=== PATIENT | female | born 1960 | race Caucasian/White ===

== ENCOUNTER 2018-11-29 12:18 | Emergency (ER) | payer BC ==
--- NOTE | 2018-11-29 12:50 | EDM.PDOC ---
ED HPI GENERAL MEDICAL PROBLEM - General Chief Complaint: Lower Extremity Injury/Pain Stated Complaint: LUMP AND BRUISE ON L LEG Time Seen by Provider: 11/29/18 12:45 Source of Information: Reports: Patient History Limitations: Reports: No Limitations - History of Present Illness INITIAL COMMENTS - FREE TEXT/NARRATIVE: Presents with spontaneous bruising and pain to left lower leg. Patient on Coumadin for mechanical prosthetic heart valve. Also complains of sore throat and cough x 2 days. Was prescribed Doxycycline several weeks ago for a URI, CXR at that time did not show pneumonia, per patient. Denies chest pain or shortness of breath. Onset Date: 11/29/18 Onset Time: 01:00 Location: Reports: Lower Extremity, Left Quality: Reports: Dull Severity: Mild - Related Data Allergies Allergy/AdvReac Type Severity Reaction Status Date / Time amoxicillin Allergy Other Verified 11/29/18 12:52 cephalexin Allergy Other Verified 11/29/18 12:52 methylprednisolone Allergy Other Verified 11/29/18 12:52 Home Meds: Home Meds Budesonide/Formoterol [Symbicort 160-4.5 MCG] 2 puff INH BID 11/29/18 [History] Carvedilol 3.125 mg PO BID 11/29/18 [History] DULoxetine HCl [Duloxetine HCl] 30 mg PO DAILY 11/29/18 [History] DULoxetine HCl [Duloxetine HCl] 60 mg PO DAILY 11/29/18 [History] Doxycycline [Vibramycin] 100 mg PO BID #28 cap 11/29/18 [Rx] Levothyroxine 150 mcg PO DAILY 11/29/18 [History] Rosuvastatin Calcium 10 mg PO BEDTIME 11/29/18 [History] Warfarin Sodium [Jantoven] 5 mg PO ASDIRECTED 11/29/18 [History] oxyCODONE HCl [oxyCODONE] 15 mg PO TID PRN 11/29/18 [History] rOPINIRole [Requip] 0.25 mg PO BEDTIME PRN 11/29/18 [History] Past Medical History Cardiovascular History: Reports: Heart Failure, High Cholesterol, Hypertension. Denies: Blood Clots/VTE/DVT Respiratory History: Reports: COPD Social & Family History - Tobacco Use Tobacco Use Within Last Twelve Months: No ED ROS GENERAL - Review of Systems Review Of Systems: ROS reveals no pertinent complaints other than HPI. ED EXAM, GENERAL - Physical Exam Exam: See Below Exam Limited By: No Limitations General Appearance: Alert, WD/WN, No Apparent Distress Ears: Normal External Exam Nose: Normal Inspection Throat/Mouth: Normal Inspection, No Airway Compromise Head: Atraumatic, Normocephalic Neck: Full Range of Motion Respiratory/Chest: No Respiratory Distress, Lungs Clear, Normal Breath Sounds Cardiovascular: Regular Rate, Rhythm, Other (mechanical valve sounds present) Peripheral Pulses: 2+: Dorsalis Pedis (L) Back Exam: Full Range of Motion Extremities: Other (4x3 cm eccymosis with mild tenderness to left anterior lower leg, no edema or swelling) Neurological: Alert, Normal Cognition Psychiatric: Normal Affect, Normal Mood Skin Exam: Warm, Dry, Intact Course - Vital Signs Last Recorded V/S: Last Vital Signs Temp 36.3 C 11/29/18 12:35 Pulse 99 11/29/18 12:35 Resp 16 11/29/18 12:35 BP 137/90 11/29/18 12:35 Pulse Ox 99 11/29/18 12:35 - Orders/Labs/Meds Orders: Active Orders 24 hr Category Date Time Status VL Duplex Lwr Ext Veins Ltd Lt [US] Stat Exams 11/29/18 12:42 Ordered Doxycycline [Vibra-Tabs] Med 11/29/18 13:29 Once 100 mg PO ONETIME ONE Labs: Laboratory Tests 11/29/18 Range/Units 12:54 PT 22.7 H (8.7-11.1) INR 2.36 H (0.89-1.13) - Radiology Interpretation Free Text/Narrative:: Venous US Doppler LLE: No DVT seen, there is a marble size fluid collection at the site of bruising. (per US tech) Departure - Departure Time of Disposition: 13:30 Disposition: Home, Self-Care 01 Condition: Good Clinical Impression: Bronchitis Hematoma of left lower extremity Qualifiers: Encounter type: initial encounter Qualified Code(s): S80.12XA - Contusion of left lower leg, initial encounter - Discharge Information *PRESCRIPTION DRUG MONITORING PROGRAM REVIEWED*: No *COPY OF PRESCRIPTION DRUG MONITORING REPORT IN PATIENT PRASHANT: Not Applicable Prescriptions: Doxycycline [Vibramycin] 100 mg PO BID #28 cap Instructions: Hematoma, [id number], Acute Bronchitis, Adult Referrals: Juliet Ferguson NP [Primary Care Provider] - Forms: ED Department Discharge Additional Instructions: Fill prescription for Doxycycline and take as directed. Check INR on 12/01/18. Elevate and rest the leg. Return to the ER as needed. - My Orders Last 24 Hours: My Active Orders 11/29/18 12:42 VL Duplex Lwr Ext Veins Ltd Lt [US] Stat 11/29/18 13:29 Doxycycline [Vibra-Tabs] 100 mg PO ONETIME ONE - Assessment/Plan Last 24 Hours: My Active Orders 11/29/18 12:42 VL Duplex Lwr Ext Veins Ltd Lt [US] Stat 11/29/18 13:29 Doxycycline [Vibra-Tabs] 100 mg PO ONETIME ONE
[2018-11-29] MEDS ORDERED: Doxycycline 100 MG Tab PO ONE (13:29)
--- NOTE | 2018-11-30 11:09 | US ---
INDICATION: Bruising, pain, question abscess versus mass - lump left mid calf ULTRASOUND, NONVASCULAR, LEFT LOWER EXTREMITY: Multiple ultrasonic images were obtained 11/29/18 - no comparisons. A hypoechoic area with echoes within it and a surrounding echogenic rim is noted in the mid calf medially on the left. No interior blood flow is seen. There is blood flow surrounding the area. This finding could represent an abscess formation or possibly a hematoma. Neoplastic process is felt to be unlikely with this appearance. This finding measured, at the site of the patients palpable lump, 1.69 x 1.05 x 0.75 cm. IMPRESSION: Complex mass in the area of a lump in the left mid medial calf, which shows no interior blood flow. It could represent a hematoma with surrounding reaction or possibly an abscess. This finding should be correlated clinically. MTDD
== END 2018-11-29 13:45 | disposition home or self-care (01) ==
LOC: FB.ED 12:18
DX: S80.12XA Contusion of left lower leg, initial encounter (principal); J40 Bronchitis, not specified as acute or chronic; I10 Essential (primary) hypertension; Z88.1 Allergy status to other antibiotic agents; Z88.8 Allergy status to other drugs, medicaments and biological substances; X58.XXXA Exposure to other specified factors, initial encounter
CPT/HCPCS: 36415; 76881; 85610; 99282; A9270; 93971-LT

== ENCOUNTER 2019-08-27 17:04 | Emergency (ER) | payer BC ==
[2019-08-27] MEDS ORDERED: Ondansetron 4 MG Tab.DIS PO ONE (17:05)
[2019-08-27] MEDS ORDERED: Ondansetron 4 MG/2 ML SDV IVPUSH ONE (17:30)
[2019-08-27] MEDS ORDERED: Sodium Chloride 0.9% 10 ML Syringe FLUSH PRN (17:30)
[2019-08-27] MEDS ORDERED: Sodium Chloride 0.9% 500 ML IV ONE (17:31)
[2019-08-27] MEDS ORDERED: HYDROmorphone 2 MG/ML SDV IVPUSH ONE ×4 (17:31→20:12)
--- NOTE | 2019-08-27 17:45 | EDM.PDOC ---
ED HPI GENERAL MEDICAL PROBLEM - General Chief Complaint: Abdominal Pain Stated Complaint: LEFT FLANK PAIN Time Seen by Provider: 08/27/19 17:35 Source of Information: Reports: Patient History Limitations: Reports: No Limitations - History of Present Illness INITIAL COMMENTS - FREE TEXT/NARRATIVE: Patient developed left flank pain this morning. Patient has a h/o mechanical mitral valve, on chronic anticoagulation (warfarin). She is s/p lap gavin @ [facility] on 08/15/19 which was complicated by bile leak. She subsequently underwent common bile duct and ventral pancreatic duct stent placement with biliary sphincterotomy on 08/18/19. She was discharged on 08/20/19. She has been nauseas since discharge. Patient fell yesterday, slipped while getting out of bed. Complains of headache and neck pain. She did not have flank pain immediately after the fall. Onset: Today Location: Reports: Abdomen Severity: Moderate left side lower abd radiating to back Pain Score (Numeric/FACES): 8 - Related Data Allergies Allergy/AdvReac Type Severity Reaction Status Date / Time amoxicillin Allergy Other Verified 11/29/18 12:52 cephalexin Allergy Other Verified 11/29/18 12:52 methylprednisolone Allergy Other Verified 11/29/18 12:52 Home Meds: Home Meds Budesonide/Formoterol [Symbicort 160-4.5 MCG] 2 puff INH BID 11/29/18 [History] DULoxetine HCl [Duloxetine HCl] 30 mg PO DAILY 11/29/18 [History] DULoxetine HCl [Duloxetine HCl] 60 mg PO DAILY 11/29/18 [History] Doxycycline [Vibramycin] 100 mg PO BID #28 cap 11/29/18 [Rx] Levothyroxine 150 mcg PO DAILY 11/29/18 [History] Rosuvastatin Calcium 10 mg PO BEDTIME 11/29/18 [History] Warfarin Sodium [Jantoven] 5 mg PO ASDIRECTED 11/29/18 [History] carvediloL [Carvedilol] 3.125 mg PO BID 11/29/18 [History] oxyCODONE HCl [oxyCODONE] 15 mg PO TID PRN 11/29/18 [History] rOPINIRole [Requip] 0.25 mg PO BEDTIME PRN 11/29/18 [History] Past Medical History Cardiovascular History: Reports: Heart Failure, Heart Valve Replacement ( mechanical mitral), High Cholesterol, Hypertension. Denies: Blood Clots/VTE/DVT Respiratory History: Reports: COPD ED ROS GENERAL - Review of Systems Review Of Systems: Comprehensive ROS is negative, except as noted in HPI. ED EXAM, GI/ABD - Physical Exam Exam: See Below Exam Limited By: No Limitations General Appearance: Alert, WD/WN, No Apparent Distress Ears: Normal External Exam Throat/Mouth: No Airway Compromise Head: Atraumatic, Normocephalic Neck: Tender Midline (posterior) Respiratory/Chest: No Respiratory Distress, Lungs Clear, Normal Breath Sounds Cardiovascular: Regular Rate, Rhythm, Other (mechanical heart sounds present) GI/Abdominal Exam: Normal Bowel Sounds, Soft, No Distention, Tender (mild LUQ) Back Exam: Full Range of Motion Extremities: Normal Range of Motion Neurological: Alert, Normal Cognition Psychiatric: Normal Affect, Normal Mood Skin Exam: Warm, Dry Course - Vital Signs Text/Narrative:: T 97.3, BP 162/90, HR 87, Sa02 98% RA Last Recorded V/S: Last Vital Signs Temp 36.3 C 08/27/19 17:04 Pulse 87 08/27/19 17:04 Resp 18 08/27/19 17:04 BP 162/90 H 08/27/19 17:04 Pulse Ox 98 08/27/19 17:04 - Orders/Labs/Meds Orders: Active Orders 24 hr Category Date Time Status Abdomen Pelvis wo Cont [CT] Stat Exams 08/27/19 17:28 Taken Cervical Spine wo Cont [CT] Stat Exams 08/27/19 17:28 Taken Head wo Cont [CT] Stat Exams 08/27/19 17:27 Taken HYDROmorphone [Dilaudid] Med 08/27/19 19:59 Once 0.5 mg IVPUSH ONETIME ONE Sodium Chloride 0.9% [Saline Flush] Med 08/27/19 17:30 Active 10 ml FLUSH ASDIRECTED PRN Saline Lock Insert [OM.PC] Routine Oth 08/27/19 17:30 Ordered Medication Orders Hydromorphone HCl (Dilaudid) 0.5 mg IVPUSH ONETIME ONE Stop: 08/27/19 20:00 Sodium Chloride (Saline Flush) 10 ml FLUSH ASDIRECTED PRN PRN Reason: Keep Vein Open Last Admin: 08/27/19 18:09 Dose: 10 ml Labs: Laboratory Tests 08/27/19 08/27/19 08/27/19 Range/Units 17:55 17:55 17:55 WBC 8.8 (4.5-12.0) X10-3/uL RBC 4.33 (3.23-5.20) x10(6)uL Hgb 13.1 (11.5-15.5) g/dL Hct 38.8 (30.0-51.3) % MCV 89.7 (80-96) fL MCH 30.2 (27.7-33.6) pg MCHC 33.6 (32.2-35.4) g/dL RDW 14.1 (11.5-15.5) % Plt Count 356 (125-369) X10(3)uL MPV 7.7 (7.4-10.4) fL Neut % (Auto) 86.3 H (46-82) % Lymph % (Auto) 8.3 L (13-37) % [place] % (Auto) 3.5 L (4-12) % Eos % (Auto) 0 L (1.0-5.0) % Baso % (Auto) 2 (0-2) % Neut # (Auto) 7.6 (1.6-8.3) # Lymph # (Auto) 0.7 (0.6-5.0) # [place] # (Auto) 0.3 (0.0-1.3) # Eos # (Auto) 0.0 (0.0-0.8) # Baso # (Auto) 0.2 (0.0-0.2) # PT 15.9 H (8.7-11.1) INR 1.65 H (0.89-1.13) Sodium 136 (135-145) mmol/L Potassium 4.4 (3.5-5.3) mmol/L Chloride 101 (100-110) mmol/L Carbon Dioxide 27 (21-32) mmol/L BUN 19 H (7-18) mg/dL Creatinine 1.0 (0.55-1.02) mg/dL Est Cr Clr Drug Dosing TNP Estimated GFR (MDRD) 57 L (>60) BUN/Creatinine Ratio 19.0 (9-20) Glucose 147 H (80-116) mg/dL Calcium 9.1 (8.6-10.2) mg/dL Total Bilirubin 0.6 (0.1-1.3) mg/dL AST 38 H (5-25) IU/L ALT 47 H (12-36) U/L Alkaline Phosphatase 171 H (56-112) IU/L Total Protein 8.1 H (6.0-8.0) g/dL Albumin 3.4 L (3.5-5.2) g/dL Globulin 4.7 g/dL Albumin/Globulin Ratio 0.7 Lipase (73-393) U/L Urine Color (YELLOW) Urine Appearance (CLEAR) Urine pH (5.0-6.5) Ur Specific [place] (1.010-1.025) Urine Protein (NEGATIVE) mg/dL Urine Glucose (UA) (NORMAL) mg/dL Urine Ketones (NEGATIVE) mg/dL Urine Occult Blood (NEGATIVE) Urine Nitrite (NEGATIVE) Urine Bilirubin (NEGATIVE) Urine Urobilinogen (NEGATIVE) mg/dL Ur Leukocyte Esterase (NEGATIVE) Urine RBC (0-5) Urine WBC (0-5) Ur Squamous Epith Cells (NS,R,O) Urine Bacteria (NS) Urine Mucus (NS) 08/27/19 08/27/19 Range/Units 17:55 19:15 WBC (4.5-12.0) X10-3/uL RBC (3.23-5.20) x10(6)uL Hgb (11.5-15.5) g/dL Hct (30.0-51.3) % MCV (80-96) fL MCH (27.7-33.6) pg MCHC (32.2-35.4) g/dL RDW (11.5-15.5) % Plt Count (125-369) X10(3)uL MPV (7.4-10.4) fL Neut % (Auto) (46-82) % Lymph % (Auto) (13-37) % [place] % (Auto) (4-12) % Eos % (Auto) (1.0-5.0) % Baso % (Auto) (0-2) % Neut # (Auto) (1.6-8.3) # Lymph # (Auto) (0.6-5.0) # [place] # (Auto) (0.0-1.3) # Eos # (Auto) (0.0-0.8) # Baso # (Auto) (0.0-0.2) # PT (8.7-11.1) INR (0.89-1.13) Sodium (135-145) mmol/L Potassium (3.5-5.3) mmol/L Chloride (100-110) mmol/L Carbon Dioxide (21-32) mmol/L BUN (7-18) mg/dL Creatinine (0.55-1.02) mg/dL Est Cr Clr Drug Dosing Estimated GFR (MDRD) (>60) BUN/Creatinine Ratio (9-20) Glucose (80-116) mg/dL Calcium (8.6-10.2) mg/dL Total Bilirubin (0.1-1.3) mg/dL AST (5-25) IU/L ALT (12-36) U/L Alkaline Phosphatase (56-112) IU/L Total Protein (6.0-8.0) g/dL Albumin (3.5-5.2) g/dL Globulin g/dL Albumin/Globulin Ratio Lipase 206 (73-393) U/L Urine Color Yellow (YELLOW) Urine Appearance Clear (CLEAR) Urine pH 5.0 (5.0-6.5) Ur Specific [place] 1.015 (1.010-1.025) Urine Protein Negative (NEGATIVE) mg/dL Urine Glucose (UA) Normal (NORMAL) mg/dL Urine Ketones Negative (NEGATIVE) mg/dL Urine Occult Blood Negative (NEGATIVE) Urine Nitrite Negative (NEGATIVE) Urine Bilirubin Negative (NEGATIVE) Urine Urobilinogen Normal (NEGATIVE) mg/dL Ur Leukocyte Esterase Negative (NEGATIVE) Urine RBC 0-5 (0-5) Urine WBC 0-5 (0-5) Ur Squamous Epith Cells Few H (NS,R,O) Urine Bacteria Few H (NS) Urine Mucus Few H (NS) Meds: Medications Generic Name Dose Route Start Last Admin Trade Name Freq PRN Reason Stop Dose Admin Hydromorphone HCl 0.5 mg 08/27/19 19:59 Dilaudid IVPUSH 08/27/19 20:00 ONETIME ONE Sodium Chloride 10 ml 08/27/19 17:30 08/27/19 18:09 Saline Flush FLUSH 10 ml ASDIRECTED PRN Administration Keep Vein Open Discontinued Medications Generic Name Dose Route Start Last Admin Trade Name Kimber PRN Reason Stop Dose Admin Hydromorphone HCl 1 mg 08/27/19 17:31 08/27/19 18:04 Dilaudid IVPUSH 08/27/19 17:32 1 mg ONETIME ONE Administration Hydromorphone HCl 1 mg 08/27/19 18:38 08/27/19 18:46 Dilaudid IVPUSH 08/27/19 18:39 1 mg ONETIME ONE Administration Sodium Chloride 500 mls @ 500 mls/hr 08/27/19 17:31 08/27/19 18:04 Normal Saline IV 08/27/19 18:30 500 mls/hr .BOLUS ONE Administration Ondansetron HCl 4 mg 08/27/19 17:30 08/27/19 18:04 Zofran IVPUSH 08/27/19 17:31 4 mg ONETIME ONE Administration - Radiology Interpretation Free Text/Narrative:: CT Head w/o contrast: No intracranial hemorrhage. Mild white-matter chronic microvascular ischemic changes. CT C-spine w/o contrast: No fracture or traumatic malalignment. CT Abd/Pelvis w/o contrast: Nothing seen to correlate with the history of left flank pain. No sign of any abnormality of the left urinary system, with no sign of calculus or obstruction. No sign of diverticulosis or diverticulitis. Changes of cholecystectomy with satisfactory positioning of a biliary stent. Mild pneumobilia in the left intrahepatic biliary system and nondilated common bile duct. - Re-Assessments/Exams Free Text/Narrative Re-Assessment/Exam: 08/27/19 20:00 Patient reports some improvement of pain after Dilaudid 2mg IV. She requests that she be discharged with a pain medication prescription to take in addition to her chronic opioid (Oxycodone 15mg tid). I declined this request. She was given Dilaudid 0.5mg IV prior to discharge. Patient was discharged with a Zofran starter pack. Departure - Departure Time of Disposition: 20:08 Disposition: Home, Self-Care 01 Condition: Good Clinical Impression: Left flank pain Minor head injury Qualifiers: Encounter type: initial encounter Qualified Code(s): S09.90XA - Unspecified injury of head, initial encounter - Discharge Information *PRESCRIPTION DRUG MONITORING PROGRAM REVIEWED*: Yes *COPY OF PRESCRIPTION DRUG MONITORING REPORT IN PATIENT PRASHANT: No Instructions: Head Injury, Adult, [id number], Abdominal Pain, Adult Referrals: Juliet Ferguson NP [Primary Care Provider] - Forms: ED Department Discharge Additional Instructions: Take Zofran 4mg every 8 hours as needed to control nausea. Take your Oxycodone as prescribed. Follow up with your primary physician in 2-3 days. Return to the ER if symptoms worsen. Sepsis Event Note - Focused Exam Vital Signs: Vital Signs Temp Pulse Resp BP Pulse Ox 08/27/19 17:04 36.3 C 87 18 162/90 H 98 Date Exam was Performed: 08/27/19 Time Exam was Performed: 20:00 - My Orders Last 24 Hours: My Active Orders 08/27/19 17:27 Head wo Cont [CT] Stat 08/27/19 17:28 Abdomen Pelvis wo Cont [CT] Stat Cervical Spine wo Cont [CT] Stat 08/27/19 17:30 Sodium Chloride 0.9% [Saline Flush] 10 ml FLUSH ASDIRECTED PRN Saline Lock Insert [OM.PC] Routine 08/27/19 19:59 HYDROmorphone [Dilaudid] 0.5 mg IVPUSH ONETIME ONE - Assessment/Plan Last 24 Hours: My Active Orders 08/27/19 17:27 Head wo Cont [CT] Stat 08/27/19 17:28 Abdomen Pelvis wo Cont [CT] Stat Cervical Spine wo Cont [CT] Stat 08/27/19 17:30 Sodium Chloride 0.9% [Saline Flush] 10 ml FLUSH ASDIRECTED PRN Saline Lock Insert [OM.PC] Routine 08/27/19 19:59 HYDROmorphone [Dilaudid] 0.5 mg IVPUSH ONETIME ONE
== END 2019-08-27 20:35 | disposition home or self-care (01) ==
LOC: FB.ED 17:04
DX: S09.90XA Unspecified injury of head, initial encounter (principal); R10.12 Left upper quadrant pain; I11.0 Hypertensive heart disease with heart failure; I50.9 Heart failure, unspecified; E78.00 Pure hypercholesterolemia, unspecified; J44.9 Chronic obstructive pulmonary disease, unspecified; Z88.1 Allergy status to other antibiotic agents; Z88.8 Allergy status to other drugs, medicaments and biological substances; Z79.899 Other long term (current) drug therapy; W06.XXXA Fall from bed, initial encounter
CPT/HCPCS: 36415; 70450; 72125; 74176; 80053; 81001; 83690; 85025; 85610; 96361; 96374; 96375; 96376; 99284; J1170; J2405; J7040; A9270-GY

== ENCOUNTER 2024-06-19 19:56 | Emergency (ER) | payer OTHER ==
[2024-06-19] MEDS: Ondansetron 4 MG Tab.DIS PO ONE (20:40)
[2024-06-19] MEDS: HYDROmorphone 2 MG/ML SDV IM ONE (20:40)
== END 2024-06-19 21:01 | disposition home or self-care (01) ==
LOC: FB.ED 19:56
DX: M25.561 Pain in right knee (principal); I11.0 Hypertensive heart disease with heart failure; I50.9 Heart failure, unspecified; E78.00 Pure hypercholesterolemia, unspecified; J44.9 Chronic obstructive pulmonary disease, unspecified; Z87.891 Personal history of nicotine dependence; Z79.899 Other long term (current) drug therapy; Z79.01 Long term (current) use of anticoagulants; Z88.1 Allergy status to other antibiotic agents; Z88.0 Allergy status to penicillin; Z88.8 Allergy status to other drugs, medicaments and biological substances
CPT/HCPCS: 73560; 96372; 99283; J1171; Q0162